=== PATIENT | female | born 1995 | race Caucasian/White ===

== ENCOUNTER 2022-10-29 08:35 | Inpatient (IN) | payer OTHER ==
[2022-10-29] MEDS ORDERED: DEXTROSE 5%-LACTATED RINGERS 500 ML IV ONE ×2 (10:15→10:45)
[2022-10-29] MEDS ORDERED: BUTORPHANOL TARTRATE 2 MG/ML VIAL IVPB ONE (11:45)
[2022-10-29] MEDS ORDERED: PROMETHAZINE HCL 25 MG/1 ML VIAL IVPB ONE (11:45)
[2022-10-29] MEDS ORDERED: NIFEdipine 10 MG CAPSULE (FP) ONE (12:19)
[2022-10-29] MEDS ORDERED: NIFEdipine 10 MG CAPSULE (FP) PO SCH (12:30)
[2022-10-29 12:48] LABS: BASO % 0.2 % (0-2.0); EOS % 0.3 % (0-4.5); HEMATOCRIT 36.6 % (32.4-45.2); HEMOGLOBIN 11.9 GM/dL (10.7-15.3); LYMPH % 12.8 % (8-40); MCH 28.3 pg (25.7-33.7); MCHC 32.6 g/dl (32.0-36.0); MEAN CELL VOLUME 86.7 fl (80-96); MEAN PLT VOLUME 8.5 fl (7.5-11.1); NEUT % 81.7 % (42.8-82.8); PLATELET COUNT 252 10^3/uL (134-434); RBC 4.22 M/mm3 (3.60-5.2); RDW 15.5 % (11.6-15.6); WHITE BLOOD COUNT 11.1 K/mm3 (4.0-10.0)
[2022-10-29] MEDS ORDERED: BUTORPHANOL TARTRATE 2 MG/ML VIAL ONE (12:51)
[2022-10-29] MEDS ORDERED: PROMETHAZINE HCL 25 MG/1 ML VIAL ONE (12:52)
[2022-10-29 12:53] LABS: INR 0.88 (0.83-1.09); PROTHROMBIN TIME (PATIENT) 10.1 SEC (9.7-13.0)
[2022-10-29 12:56] LABS: ACTIVATED PTT 24.8 SECONDS (25.2-36.5)
[2022-10-29 13:14] LABS: CALCIUM 8.9 mg/dL (8.5-10.1)
[2022-10-29 13:18] LABS: CREATININE 0.6 mg/dL (0.55-1.3)
[2022-10-29 13:24] LABS: BLOOD UREA NITROGEN 7.1 mg/dL (7-18)
[2022-10-29 13:43] VITALS: BMI 28.3
[2022-10-29] MEDS ORDERED: OXYTOCIN 30 UNITS in 0.9% NS 30 UNIT/500 ML INFUS.BAG IVPB SCH (13:45)
[2022-10-29] MEDS ORDERED: OXYTOCIN 30 UNITS in 0.9% NS 30 UNIT/500 ML INFUS.BAG IVPB ONE (14:05)
[2022-10-29 14:57] LABS: METHADONE, UR NEGATIVE (NEGATIVE); PHENCYCLIDINE,URINE NEGATIVE (NEGATIVE); URINE BARBITURATES NEGATIVE (NEGATIVE)
[2022-10-29 14:58] LABS: OPIATES, URI NEGATIVE (NEGATIVE)
[2022-10-29 14:59] LABS: COCAINE, UR NEGATIVE (NEGATIVE); URINE AMPHETAMINES NEGATIVE (NEGATIVE); URINE BENZODIAZEPINES NEGATIVE (NEGATIVE)
[2022-10-29 15:13] LABS: HIV INTERPRETATION NEGATIVE (NEGATIVE)
[2022-10-29] MEDS ORDERED: BUPIVACAINE HCL/PF 0.25% (2.5MG/ML) 10 ML VIAL ONE ×2 (16:10→18:49)
[2022-10-29] MEDS ORDERED: FENTANYL/BUPIVACAINE/NS/PF - PCEA - 50 ML DISP.SYRIN EP ONE ×3 (16:10→22:26)
[2022-10-29] MEDS ORDERED: NALOXONE HCL 0.4 MG/ML VIAL IVPUSH PRN (16:33)
[2022-10-29] MEDS ORDERED: FENTANYL/BUPIVACAINE/NS/PF - PCEA - 50 ML DISP.SYRIN EP SCH (16:45)
[2022-10-29 17:16] LABS: CALCIUM 9.2 mg/dL (8.5-10.1)
[2022-10-29 17:17] LABS: ALBUMIN 2.6 g/dl (3.4-5.0); BLOOD UREA NITROGEN 5.7 mg/dL (7-18)
[2022-10-29 17:20] LABS: CREATININE 0.4 mg/dL (0.55-1.3)
[2022-10-29 17:22] LABS: BILIRUBIN,TOTAL 0.4 mg/dL (0.2-1); TOT PROT 6.6 g/dl (6.4-8.2)
[2022-10-29] MEDS ORDERED: FENTANYL CITRATE/PF 50 MCG/ML VIAL ONE (18:49)
[2022-10-29] MEDS ORDERED: LIDOCAINE HCL 1% PRESERVATIVE FREE - 30ML VIAL ONE (21:55)
[2022-10-29] MEDS ORDERED: OXYTOCIN 20 UNITS in 0.9% NS 20 UNIT/1,000 ML INFUS.BAG IV ONE (21:55)
[2022-10-30] MEDS ORDERED: BENZOCAINE 20% 57 GM BOTTLE TP PRN (02:21)
[2022-10-30] MEDS ORDERED: BISACODYL 10 MG SUPP.RECT RC PRN (02:21)
[2022-10-30] MEDS ORDERED: ACETAMINOPHEN 325 MG TABLET (FP) PO PRN (02:21)
[2022-10-30] MEDS ORDERED: WITCH HAZEL 50% (TUCKS) 40 PAD/JAR PAD TP PRN (02:21)
[2022-10-30] MEDS ORDERED: BENZOCAINE 28 GM HEMORRHOIDAL OINTMENT TP PRN (02:21)
[2022-10-30] MEDS ORDERED: IBUPROFEN 600 MG TABLET (FP) PO PRN (02:21)
[2022-10-30] MEDS ORDERED: CARBOPROST TROMETHAMINE 250 MCG/ML AMPUL IM ONE (02:23)
[2022-10-30] MEDS ORDERED: OXYTOCIN 20 UNITS in 0.9% NS 20 UNIT/1,000 ML INFUS.BAG IV SCH (02:30)
[2022-10-30] MEDS ORDERED: ACETAMINOPHEN 325 MG TABLET (FP) ONE (02:42)
[2022-10-30 03:18] LABS: CORD BASE EXCESS -7.7 mmol/L (0-2); CORD HCO3 20.7 mmHg (20-29); CORD PCO2 54.6 mmHg (30-78); CORD pH 7.196 (7.14-7.44)
[2022-10-30] MEDS: oxyCODONE HCL 5 MG TABLET PO PRN ×2 (11:42→18:44)
[2022-10-31] MEDS: oxyCODONE HCL 5 MG TABLET PO PRN ×2 (01:36→08:25)
[2022-10-31 09:25] LABS: BASO % 0.5 % (0-2.0); EOS % 1.2 % (0-4.5); HEMATOCRIT 36.1 % (32.4-45.2); HEMOGLOBIN 11.8 GM/dL (10.7-15.3); LYMPH % 16.7 % (8-40); MCH 28.4 pg (25.7-33.7); MCHC 32.6 g/dl (32.0-36.0); MEAN PLT VOLUME 7.8 fl (7.5-11.1); MONO % 4.7 % (3.8-10.2); NEUT % 76.9 % (42.8-82.8); PLATELET COUNT 228 10^3/uL (134-434); RBC 4.15 M/mm3 (3.60-5.2); RDW 15.9 % (11.6-15.6); WHITE BLOOD COUNT 13.9 K/mm3 (4.0-10.0)
[2022-10-31] MEDS: ACETAMINOPHEN 325 MG TABLET (FP) PO SCH ×3 (09:59→21:09)
[2022-10-31] MEDS: IBUPROFEN 600 MG TABLET (FP) PO SCH ×4 (09:59→21:11)
[2022-10-31] MEDS: LABETALOL HCL 200 MG TABLET (FP) PO SCH ×3 (10:41→21:09)
[2022-10-31 12:01] LABS: CALCIUM 8.8 mg/dL (8.5-10.1)
[2022-10-31 12:02] LABS: ALBUMIN 2.2 g/dl (3.4-5.0); BLOOD UREA NITROGEN 8.7 mg/dL (7-18)
[2022-10-31 12:05] LABS: CREATININE 0.6 mg/dL (0.55-1.3)
[2022-10-31 12:06] LABS: TOT PROT 5.8 g/dl (6.4-8.2)
[2022-10-31 12:07] LABS: BILIRUBIN,TOTAL 0.4 mg/dL (0.2-1)
[2022-10-31] MEDS ORDERED: LABETALOL HCL 200 MG TABLET (FP) PO SCH (14:00)
[2022-10-31] MEDS ORDERED: SENNOSIDES/DOCUSATE COMBO (SENNA PLUS) TABLET (UD) PO PRN (22:00)
[2022-11-01] MEDS: IBUPROFEN 600 MG TABLET (FP) PO SCH ×5 (02:14→21:23)
[2022-11-01] MEDS: ACETAMINOPHEN 325 MG TABLET (FP) PO SCH ×3 (05:52→17:12)
[2022-11-01] MEDS: LABETALOL HCL 200 MG TABLET (FP) PO SCH (06:24)
[2022-11-01] MEDS ORDERED: LABETALOL HCL 100 MG TABLET (FP) PO ONE (11:14)
[2022-11-01] MEDS ORDERED: LABETALOL HCL 100 MG TABLET (FP) PO SCH (14:00)
[2022-11-01] MEDS ORDERED: hydrALAZINE HCL 20 MG/ML VIAL ONE (14:31)
[2022-11-01] MEDS ORDERED: NIFEdipine 10 MG CAPSULE (FP) ONE (14:31)
[2022-11-01] MEDS ORDERED: MAGNESIUM 4GM/H20 - 4 GM/100 ML IVPB IVPB SCH (14:46)
[2022-11-01] MEDS ORDERED: MAGNESIUM SULFATE 20GM/500ML - 20 GM/500 ML INFUS.BAG IV SCH (15:00)
[2022-11-01] MEDS ORDERED: MAGNESIUM SULFATE 20GM/500ML - 20 GM/500 ML INFUS.BAG ONE (15:10)
[2022-11-01] MEDS ORDERED: SODIUM CHLORIDE 1,000 ML IV ONE (15:10)
[2022-11-01] MEDS ORDERED: MAGNESIUM 4GM/H20 - 4 GM/100 ML IVPB IVPB ONE (15:11)
[2022-11-01 15:35] LABS: INR 0.91 (0.83-1.09); PROTHROMBIN TIME (PATIENT) 10.5 SEC (9.7-13.0)
[2022-11-01 15:37] LABS: ACTIVATED PTT 26.1 SECONDS (25.2-36.5)
[2022-11-01 15:57] LABS: ALBUMIN 2.4 g/dl (3.4-5.0); BLOOD UREA NITROGEN 11.6 mg/dL (7-18); CALCIUM 8.8 mg/dL (8.5-10.1)
[2022-11-01 16:00] LABS: CREATININE 0.6 mg/dL (0.55-1.3)
[2022-11-01 16:02] LABS: BILIRUBIN,TOTAL 0.3 mg/dL (0.2-1); TOT PROT 6.2 g/dl (6.4-8.2)
[2022-11-01] MEDS: NIFEdipine E.R. 30 MG TABLET PO SCH (16:05)
[2022-11-01 20:58] LABS: MAGNESIUM 5.1 mg/dL (1.8-2.4)
[2022-11-01] MEDS ORDERED: IBUPROFEN 600 MG TABLET (FP) PO ONE (21:07)
[2022-11-01] MEDS ORDERED: NIFEdipine 10 MG CAPSULE (FP) PO SCH (22:00)
[2022-11-02] MEDS ORDERED: MAGNESIUM SULFATE 20GM/500ML - 20 GM/500 ML INFUS.BAG ONE (01:58)
[2022-11-02] MEDS ORDERED: IBUPROFEN 600 MG TABLET (FP) PO ONE (05:32)
[2022-11-02] MEDS: IBUPROFEN 600 MG TABLET (FP) PO SCH ×4 (05:37→17:42)
[2022-11-02] MEDS ORDERED: NIFEdipine E.R. 30 MG TABLET PO ONE (06:49)
[2022-11-02] MEDS: NIFEdipine E.R. 30 MG TABLET PO SCH ×2 (06:50→16:59)
[2022-11-02 07:28] LABS: MAGNESIUM 6.6 mg/dL (1.8-2.4)
[2022-11-02] MEDS ORDERED: oxyCODONE HCL 5 MG TABLET ONE (10:48)
[2022-11-02] MEDS: oxyCODONE HCL 5 MG TABLET PO PRN ×2 (10:50→21:06)
[2022-11-02] MEDS ORDERED: MAGNESIUM SULFATE 20GM/500ML - 20 GM/500 ML INFUS.BAG IV SCH (13:10)
[2022-11-02] MEDS ORDERED: IBUPROFEN 600 MG TABLET (FP) PO PRN (16:08)
[2022-11-02 16:19] LABS: MAGNESIUM 6.9 mg/dL (1.8-2.4)
[2022-11-03 09:31] VITALS: TEMP 98
[2022-11-03] MEDS: NIFEdipine E.R. 30 MG TABLET PO SCH (09:51)
[2022-11-03 13:23] VITALS: BP 132/78; PULSE 83; RESP 16
== END 2022-11-03 13:47 | disposition home or self-care (01) | DRG 560 ==
LOC: JDEL 08:35 → JLDR 11:20 → J3W 10-30 04:23 → JLDR 11-01 14:58 → J3W 11-02 16:54
PROVIDERS: ADMIT Specialist; ATTEND Specialist
PROC: 10E0XZZ Delivery of Products of Conception, External Approach (ICD-10-PCS; principal; 2022-10-30)
DX: O14.14 Severe pre-eclampsia complicating childbirth (principal); Z3A.38 38 weeks gestation of pregnancy; Z37.0 Single live birth
CPT/HCPCS: 36415; 36600; 59409; 80048; 80053; 80307; 82570; 82803; 83735; 84156; 85025; 85610; 85730; 86780; 86850; 86900; 86901; 87389; 88307-TC; C9803-CS; U0003; U0005